=== PATIENT | male | born 1950 | race African-American/Black ===

== ENCOUNTER 2017-06-08 21:14 | Emergency (ER) | payer MEDICARE ==
[~2017-06-08] VITALS: Ht 172.7 cm; Wt 92.6 kg
[2017-06-08] MEDS ORDERED: PLAVIX75 MG PO (21:33)
[2017-06-08] MEDS ORDERED: METOPROLOL TART50 MG PO (21:33)
[2017-06-08] MEDS ORDERED: NITROGLYCERIN0.4 MG SL (21:34)
[2017-06-08] MEDS ORDERED: TYLENOL # 31 TA1 PO (21:35)
[2017-06-08] MEDS ORDERED: METHOCARBAM500 MG PO (21:36)
[2017-06-08] MEDS ORDERED: AMOXICILLIN500 MG PO (22:27)
[2017-06-08] MEDS ORDERED: PERCOCET 5/325M1 TAB PO (22:27)
[2017-06-08] MEDS ORDERED: ZOVIRAX800 MG PO (22:27)
[2017-06-08 22:54] VITALS: BP 140/82
== END 2017-06-08 22:55 | disposition home or self-care (01) ==
LOC: ED 21:14
DX: H66.92 Otitis media, unspecified, left ear (principal); R21 Rash and other nonspecific skin eruption; I10 Essential (primary) hypertension; Z95.1 Presence of aortocoronary bypass graft